=== PATIENT | female | born 1990 | race Caucasian/White ===

== ENCOUNTER 2019-10-17 05:59 | Emergency (ER) | payer OTHER, SELFPAY ==
[~2019-10-17] VITALS: Ht 172.7 cm; Wt 104.3 kg
[2019-10-17 06:00] VITALS: Ht 172.7 cm; Wt 104.3 kg
[2019-10-17 06:33] VITALS: BP 120/62
== END 2019-10-17 06:33 | disposition home or self-care (01) ==
LOC: ED 05:59
DX: R09.89 Other specified symptoms and signs involving the circulatory and respiratory systems (principal); Z20.828 Contact with and (suspected) exposure to other viral communicable diseases
CPT/HCPCS: U0003-CS